=== PATIENT | male | born 1990 | race Two or more races ===

== ENCOUNTER 2022-11-07 07:39 | Inpatient (IN) | payer MEDICAID ==
[~2022-11-07] VITALS: Ht 167.6 cm; Wt 59.0 kg
[2022-11-07] VITALS (9 sets, daily range): BP systolic 97–133; BP diastolic 64–95
[2022-11-07] MEDS ORDERED: SODIUM CHLORIDE 0.9% 500 ML IV ONE (08:30)
[2022-11-07 08:49] LABS: BASOPHILS % 0.8 % (0.0-2.0); EOSINOPHILS % 2.1 % (0.0-5.0); HEMATOCRIT. 24.9 % (42.0-52.0); HEMOGLOBIN. 8.8 g/dL (14.0-18.0); LYMPHOCYTES % 11.6 % (20.0-50.0); MEAN CORPUSCULAR HEMOGLOBIN 31.7 pg (28.0-32.0); MEAN CORPUSCULAR VOLUME 90.3 fL (80.0-94.0); MEAN PLATELET VOLUME 7.5 fl (7.4-10.4); MONOCYTES % 7.7 % (2.0-8.0); NEUTROPHILS % 77.8 % (40.0-76.0); PLATELET 248 x1000/uL (130-400); RED BLOOD CELL COUNT 2.76 mill/uL (4.7-6.1); RED CELL DISTRIBUTION WIDTH 17.2 % (11.6-14.6)
[2022-11-07 08:59] LABS: CHLORIDE 100 mEq/L (98-107)
[2022-11-07] MEDS ORDERED: ASPIRIN 81MG TABLET PO ONE (12:30)
[2022-11-07 13:13] LABS: BG BASE EXCESS -1.7 mmol/L (-2.0-2.0); BG CARBOXYHEMOGLOBIN 0.9 % (0.5-1.5); BG DEOXYHEMOGLOBIN 0.3 % (0.0-5.0); BG FRACTION INSPIRED OXYGEN 100; BG HCO3 ACT 22.1 mmol/L (22.0-26.0); BG METHEMOGLOBIN 0.3 % (0.0-1.5); BG OXYGEN SATURATION 99.7 % (92.0-98.5); BG OXYHEMOGLOBIN 98.5 % (94.0-97.0); BG PCO2 33.7 mmHg (35.0-45.0); BG PH 7.434 (7.350-7.450); BG PO2 236.2 mmHg (75.0-100.0); BG SAMPLE SITE RIGHT RADIAL; BG TOTAL HEMOGLOBIN 9.6 g/dL (12.0-18.0); BG VENT MODE MASK - BIPAP
[2022-11-07] MEDS ORDERED: DOCUSATE SODIUM 100MG CAPSULE PO PRN (15:00)
[2022-11-07] MEDS ORDERED: GUAIFENESIN 200MG/10ML SUGAR FREE UDC PO PRN (15:00)
[2022-11-07] MEDS ORDERED: TRAMADOL 50MG TABLET PO PRN (15:00)
[2022-11-07] MEDS ORDERED: ONDANSETRON HCL 4MG/2ML INJ IV PRN (15:00)
[2022-11-07] MEDS ORDERED: DIPHENHYDRAMINE 50MG/ML VIAL IV PRN (15:00)
[2022-11-07] MEDS ORDERED: HYDROCODONE/ACETAMINOPHEN 5/325MG TABLET PO PRN (15:00)
[2022-11-07] MEDS ORDERED: ACETAMINOPHEN 325MG TABLET PO PRN (15:00)
[2022-11-07] MEDS ORDERED: MAGNESIUM/ALUMINUM HYDROXIDE/SIMETHICONE 30ML UDC PO PRN (15:00)
[2022-11-07] MEDS ORDERED: NALOXONE HCL 0.4MG/ML VIAL IV PRN (15:15)
[2022-11-07] MEDS: MIDODRINE HCL 5MG TABLET PO SCH ×2 (15:16→20:11)
[2022-11-07 15:52] LABS: HEPATITIS B SURFACE ANTIGEN NEGATIVE
[2022-11-07] MEDS ORDERED: EPOETIN ALFA-EPBX 4,000 UNIT/ML VIAL SUBCUT SCH (21:00)
[2022-11-08] MEDS: MIDODRINE HCL 5MG TABLET PO SCH (06:00)
[2022-11-08 08:47] LABS: BASOPHILS % 0.9 % (0.0-2.0); CHLORIDE 109 mEq/L (98-107); EOSINOPHILS % 3.5 % (0.0-5.0); HEMATOCRIT. 27.5 % (42.0-52.0); HEMOGLOBIN. 9.1 g/dL (14.0-18.0); LYMPHOCYTES % 20.1 % (20.0-50.0); MEAN CORPUSCULAR HEMOGLOBIN 30.2 pg (28.0-32.0); MEAN CORPUSCULAR VOLUME 91.4 fL (80.0-94.0); MEAN PLATELET VOLUME 7.2 fl (7.4-10.4); MONOCYTES % 11.4 % (2.0-8.0); NEUTROPHILS % 64.1 % (40.0-76.0); PLATELET 249 x1000/uL (130-400); RED BLOOD CELL COUNT 3.01 mill/uL (4.7-6.1); RED CELL DISTRIBUTION WIDTH 17.2 % (11.6-14.6)
[2022-11-08 08:55] LABS: HDL CHOLESTEROL 52 mg/dL (40-59); LDL CHOLESTEROL 93 mg/dL (5-100)
[2022-11-08 12:35] VITALS: BP 126/78
[2022-11-08 12:54] VITALS: BP 126/78
[2022-11-08] MEDS ORDERED: DEXTROSE 50% WATER 50ML SYRINGE IV PRN (14:15)
[2022-11-08] MEDS ORDERED: CALC667C MT (14:24)
[2022-11-08] MEDS ORDERED: NIFE-32 MT (14:24)
[2022-11-08] MEDS ORDERED: PANT40TA51 MT (14:24)
[2022-11-08] MEDS ORDERED: DARU1TAB MT (14:24)
[2022-11-08] MEDS ORDERED: DOLU50TA MT (14:24)
[2022-11-08] MEDS: HYDRALAZINE HCL 100MG TABLET PO SCH ×2 (14:45→21:02)
[2022-11-08 16:00] VITALS: BP 145/107
[2022-11-08] MEDS: BLOOD SUGAR DIAGNOSTIC STRIP TEST SCH ×2 (17:08→21:02)
[2022-11-08] MEDS: INSULIN LISPRO 100 UNITS/ML SUBCUT SCH ×2 (17:25→21:03)
[2022-11-08 20:00] VITALS: BP 147/90
[2022-11-08] MEDS ORDERED: FAMOTIDINE 20MG TABLET PO SCH (21:00)
[2022-11-09] VITALS (13 sets, daily range): BP systolic 96–179; BP diastolic 59–111
[2022-11-09] MEDS: BLOOD SUGAR DIAGNOSTIC STRIP TEST SCH ×2 (06:00→12:10)
[2022-11-09] MEDS: HYDRALAZINE HCL 100MG TABLET PO SCH ×3 (06:02→14:41)
[2022-11-09 06:49] LABS: BASOPHILS % 0.9 % (0.0-2.0); EOSINOPHILS % 4.5 % (0.0-5.0); HEMATOCRIT. 26.5 % (42.0-52.0); LYMPHOCYTES % 19.6 % (20.0-50.0); MEAN CORPUSCULAR HEMOGLOBIN 31.1 pg (28.0-32.0); MEAN CORPUSCULAR VOLUME 91.3 fL (80.0-94.0); MEAN PLATELET VOLUME 7.4 fl (7.4-10.4); MONOCYTES % 10.2 % (2.0-8.0); NEUTROPHILS % 64.8 % (40.0-76.0); PLATELET 248 x1000/uL (130-400); RED BLOOD CELL COUNT 2.91 mill/uL (4.7-6.1); RED CELL DISTRIBUTION WIDTH 16.5 % (11.6-14.6)
[2022-11-09] MEDS: INSULIN LISPRO 100 UNITS/ML SUBCUT SCH ×2 (06:52→12:44)
[2022-11-09 07:26] LABS: PHOSPHORUS 7.1 mg/dL (2.5-4.9)
[2022-11-09] MEDS ORDERED: AMLODIPINE 10MG TABLET PO SCH (09:00)
== END 2022-11-09 16:35 | disposition home or self-care (01) | DRG 194 ==
LOC: ER 07:39 → MICUSO 12:15 → EDBEDREQSVC 12:19 → EDBEDREQ 12:19 → EDBEDREQTM 12:19 → 8WST 11-08 12:47
PROVIDERS: ADMIT Hospitalist; ATTEND Hospitalist
PROC: 5A1D70Z Performance of Urinary Filtration, Intermittent, Less than 6 Hours Per Day (ICD-10-PCS; principal; 2022-11-07)
DX: I13.2 Hypertensive heart and chronic kidney disease with heart failure and with stage 5 chronic kidney disease, or end stage renal disease (principal); J96.01 Acute respiratory failure with hypoxia; E46 Unspecified protein-calorie malnutrition; N18.6 End stage renal disease; D63.1 Anemia in chronic kidney disease; I50.31 Acute diastolic (congestive) heart failure; E11.22 Type 2 diabetes mellitus with diabetic chronic kidney disease; Z20.822 Contact with and (suspected) exposure to COVID-19; E78.1 Pure hyperglyceridemia; E78.5 Hyperlipidemia, unspecified; Z99.2 Dependence on renal dialysis; Z68.21 Body mass index [BMI] 21.0-21.9, adult; Z85.71 Personal history of Hodgkin lymphoma; Z79.899 Other long term (current) drug therapy
CPT/HCPCS: 36415; 36600; 71045; 80048; 80053; 80061; 82375; 82805; 82962; 83036; 83735; 83880; 84100; 84484; 85025; 86705; 86709; 86803; 87340; 87426; 90935; 93005; 99291; C9803; J0885; J1815; J7040

== ENCOUNTER 2023-02-24 08:47 | Inpatient (IN) | payer MEDICAID ==
[~2023-02-24] VITALS: Ht 167.6 cm; Wt 53.1 kg
[~2023-02-24 08:47] MED LIST: CALC667C MT; DARU1TAB MT; DOLU50TA MT; NIFE-32 MT; PANT40TA51 MT
[2023-02-24 09:18] LABS: BASOPHILS % 0.4 % (0.0-2.0); EOSINOPHILS % 0.6 % (0.0-5.0); HEMATOCRIT. 30.3 % (42.0-52.0); HEMOGLOBIN. 10.3 g/dL (14.0-18.0); LYMPHOCYTES % 9.1 % (20.0-50.0); MEAN CORPUSCULAR HEMOGLOBIN 30.5 pg (28.0-32.0); MEAN CORPUSCULAR VOLUME 90.1 fL (80.0-94.0); MEAN PLATELET VOLUME 8.4 fl (7.4-10.4); MONOCYTES % 6.8 % (2.0-8.0); NEUTROPHILS % 83.1 % (40.0-76.0); PLATELET 140 x1000/uL (130-400); RED BLOOD CELL COUNT 3.37 mill/uL (4.7-6.1); RED CELL DISTRIBUTION WIDTH 17.6 % (11.6-14.6)
[2023-02-24 09:25] LABS: CHLORIDE 95 mEq/L (98-107)
[2023-02-24] MEDS ORDERED: NITROGLYCERIN 0.4MG TABLET SL SL PRN (09:45)
[2023-02-24] MEDS ORDERED: ONDANSETRON HCL 4MG/2ML INJ IV ONE (10:00)
[2023-02-24] MEDS ORDERED: MORPHINE SULFATE 2 MG/ML CPJ (NOT FOR IM USE) IV SCH (10:15)
[2023-02-24] MEDS ORDERED: ONDANSETRON HCL 4MG/2ML INJ IV PRN ×2 (14:45→16:45)
[2023-02-24 16:00] VITALS: BP 180/104
[2023-02-24] MEDS ORDERED: NALOXONE HCL 0.4MG/ML VIAL IV PRN (16:45)
[2023-02-24] MEDS ORDERED: HYDROCODONE/ACETAMINOPHEN 10/325MG TABLET PO PRN (16:45)
[2023-02-24] MEDS ORDERED: METOPROLOL SUCCINATE 50MG ER TABLET PO SCH (17:00)
[2023-02-24 17:04] VITALS: BP 180/104
[2023-02-24] MEDS ORDERED: HYDRALAZINE 20MG/ML VIAL IV SCH (18:00)
[2023-02-25] MEDS ORDERED: ASPIRIN 81MG EC TABLET PO SCH (09:00)
== END 2023-02-24 19:20 | disposition left against medical advice (07) | DRG 199 ==
LOC: ER 08:47 → EDBEDREQ 11:45 → 7WST 12:24
PROVIDERS: ADMIT Internal Medicine; ATTEND Internal Medicine
DX: I16.0 Hypertensive urgency (principal); I50.9 Heart failure, unspecified; I11.0 Hypertensive heart disease with heart failure; Z53.29 Procedure and treatment not carried out because of patient's decision for other reasons; Z79.899 Other long term (current) drug therapy
CPT/HCPCS: 36415; 71045; 71275; 74174; 80053; 82962; 83605; 84484; 85025; 85379; 93005; 99285; J0360; J2270; J2405